=== PATIENT | male | born 1965 | race Caucasian/White ===

== ENCOUNTER 2017-10-02 09:36 | Outpatient (CLI) | payer OTHER ==
[~2017-10-02 09:36] MED LIST: AVAPRO150 MG; IRBESARTAN150 MG; LEVSIN/SL0.125 MG SL; PROCARDIA90 MG/BLIS; PROTONIX40 MG PO
== END 2017-10-02 10:12 | disposition home or self-care (01) ==
LOC: NUCLEAR 09:36
DX: I11.9 Hypertensive heart disease without heart failure (principal)